=== PATIENT | male | born 1970 | race Hispanic/Latino ===

== ENCOUNTER 2019-09-30 13:12 | Emergency (ER) | payer OTHER ==
[~2019-09-30] VITALS: Ht 185.4 cm; Wt 104.3 kg
[~2019-09-30 13:12] MED LIST: METF-446 PO
[2019-09-30 13:52] LABS: BASOPHILS % (AUTO) 0.2 % (0.0-5.0); EOSINOPHILS % (AUTO) 0.9 % (0.0-8.0); HEMATOCRIT 38.4 % (42-54); LYMPHOCYTES % (AUTO) 17.3 % (21.0-51.0); MEAN CORPUSCULAR HEMOGLOBIN 27.8 pg (27.0-33.0); MEAN CORPUSCULAR HGB CONC 33.6 g/dL (32.0-36.0); MEAN CORPUSCULAR VOLUME 82.8 fL (79-99); MONOCYTES % (AUTO) 7.4 % (3.0-13.0); NEUTROPHILS % (AUTO) 73.7 % (40.0-77.0); PLATELET COUNT (AUTO) 296 K/uL (130-400); RED BLOOD CELL COUNT(AUTO) 4.64 MIL/uL (4.50-6.20); RED CELL DISTRIBUTION WIDTH 12.6 % (11.0-15.5); WHITE BLOOD COUNT (AUTO) 10.1 K/uL (4.8-10.8)
[2019-09-30 14:00] LABS: POTASSIUM 4.5 mmol/L (3.5-5.1)
[2019-09-30 14:05] LABS: ALBUMIN 2.5 g/dL (3.5-5.0); BILIRUBIN,TOTAL 0.7 mg/dL (0.2-1.0); TOTAL PROTEIN, SERUM 7.6 g/dL (6.0-8.3)
[2019-09-30] MEDS ORDERED: IOHEXOL-350 75 ML VIAL IV ONE (14:47)
[2019-09-30] MEDS ORDERED: ONDANSETRON HCL 4 MG/2 ML VIAL ONE (15:10)
[2019-09-30] MEDS ORDERED: SODIUM CHLORIDE 0.9% 1000ML 1,000 ML IV ONE (15:11)
[2019-09-30] MEDS ORDERED: MORPHINE SULFATE 4 MG/1ML SYG ONE (15:11)
[2019-09-30] MEDS ORDERED: VANCOMYCIN 1.5 GM in SODIUM CHLORIDE 0.9% 250 ML IV SCH (15:15)
[2019-10-06] MEDS ORDERED: METF-444 PO (13:13)
[2019-10-06] MEDS ORDERED: GLIP5TAB11 PO (13:13)
== END 2019-09-30 18:38 | disposition home or self-care (01) ==
LOC: EDH 13:12
DX: L03.317 Cellulitis of buttock (principal); E11.65 Type 2 diabetes mellitus with hyperglycemia
CPT/HCPCS: 36415; 72193; 80053; 85025; 96361; 96365; 96366; 99285; J2270; J2405; J3370; J7030 ×2; Q9967